=== PATIENT | female | born 1980 | race Caucasian/White ===

== ENCOUNTER 2016-11-02 19:09 | Emergency (ER) | payer OTHER ==
[2016-11-02 20:35] LABS: BASO % 0.2 % (0.1-1.2); EOS # 0.1 10_X3_uL (0.0-0.4); EOS % 1.6 % (0.7-5.8); GRAN # 3.9 10_X3_uL (1.6-6.1); GRAN % 60.8 % (34.0-71.1); HEMATOCRIT 34.6 % (34-45); HEMOGLOBIN 11.2 g/dL (11.2-15.7); LYMPH # 1.8 10_X3_uL (1.2-3.7); LYMPH % 28.2 % (19.3-51.7); MEAN CORPUSCULAR HEMOGLOBIN 25.7 pg (27.0-33.0); MEAN CORPUSCULAR HGB CONC 32.4 g/dL (32.0-36.0); MEAN CORPUSCULAR VOLUME 79.5 fL (79-95); MEAN PLATELET VOLUME 11.9 fl (7.5-11.5); MONO # 0.6 10_X3_uL (0.2-0.9); MONO % 9.2 % (4.7-12.5); PLATELET COUNT 133 x10_3/uL (182-369); RED BLOOD COUNT 4.35 x10_6/uL (3.9-5.2); RED CELL DISTRIBUTION WIDTH 15.9 % (11.7-14.4); WHITE BLOOD COUNT 6.4 x10_3/uL (4.0-10.0)
[2016-11-02 21:21] LABS: ALBUMIN 3.5 gm/dL (3.4-5.0); ALKALINE PHOSPHATASE 66 U/L (50-136); ALT/SGPT 37 U/L (3.5-33.9); AST/SGOT 20 U/L (7.04-26.96); BILIRUBIN,TOTAL 0.35 mg/dL (0.0-1.0); BLOOD UREA NITROGEN 8 mg/dL (7-18); CALCIUM 8.5 mg/dL (8.7-10.7); CARBON DIOXIDE 23 mmol/L (21-32); CREATININE 0.8 mg/dL (0.6-1.3); GLUCOSE,RANDOM 99 mg/dL (70-99); POTASSIUM 3.9 mmol/L (3.5-5.1); SODIUM 139 mmol/L (136-145); TOTAL PROTEIN 6.8 gm/dL (6.4-8.2)
[2016-11-02 22:23] LABS: ERYTHROCYTE SEDIMENTATION RATE 35 mm/hr (0-20)
== END 2016-11-03 00:03 | disposition home or self-care (01) ==
LOC: ER 19:09
PROVIDERS: Emergency Medicine
DX: R51 Headache (principal); M54.6 Pain in thoracic spine; E11.9 Type 2 diabetes mellitus without complications; D64.9 Anemia, unspecified; Z86.14 Personal history of Methicillin resistant Staphylococcus aureus infection; Z98.84 Bariatric surgery status; Z90.710 Acquired absence of both cervix and uterus; Z90.49 Acquired absence of other specified parts of digestive tract; R11.0 Nausea
CPT/HCPCS: 36415; 70450; 71010; 71250; 80053; 82550; 82553; 83605; 85025; 85651; 87040; 87070; 87880; 93005; 96374; 96375; 99070; 99284-25; J1170